=== PATIENT | female | born 1950 | race American Indian/Alaskan Native ===

== ENCOUNTER 2017-08-24 13:01 | Outpatient (CLI) | payer MEDICARE ==
--- NOTE | 2017-08-24 16:13 | XRay Report ---
XRAY BILATERAL KNEE THREE VIEWS EACH: 08/24/17 13:01:00 CLINICAL: Bilateral knee pain. FINDINGS: Right: Moderate osteopenia. Lateral joint space narrowing is more pronounced with standing. Large lateral osteophytes. The medial joint space is preserved with moderate size osteophytes. Patellofemoral joint osteoarthritis with osteophytes. A small osteochondroma of the distal right femur. No fracture or dislocation. No joint effusion. Normal soft tissues. Left: Moderate osteopenia. Severe narrowing of the medial joint space which is more pronounced with standing. Large medial osteophytes. Widening of the lateral joint space with small lateral osteophytes. Patellofemoral osteophytes. No joint effusion. No fracture or dislocation. Normal soft tissues. IMPRESSION: Bilateral osteoarthritis. Greater involvement of the lateral joint on the right and the medial joint space on the left. Bilateral patellofemoral osteoarthritis.Osteochondroma of the distal medial right femur.
== END 2017-08-24 13:02 | disposition home or self-care (01) ==
LOC: SPVIMAG 13:01
PROVIDERS: ATTEND Orthopaedic Surgery Sports Medicine
DX: D16.21 Benign neoplasm of long bones of right lower limb (principal); M17.0 Bilateral primary osteoarthritis of knee; M85.861 Other specified disorders of bone density and structure, right lower leg; M85.862 Other specified disorders of bone density and structure, left lower leg